=== PATIENT | male | born 1945 | race Caucasian/White ===

== ENCOUNTER 2017-03-05 11:19 | Outpatient (CLI) | payer MEDICARE ==
--- NOTE | 2017-03-05 13:09 | Ultrasound Report ---
RIGHT UPPER QUADRANT ULTRASOUND: 03/05/2017 CLINICAL INDICATION: Abnormal LFTs. TECHNIQUE: Real-time scanning was performed with [employer] sales representative static images obtained. FINDINGS: The liver measures 15.5 cm. Hepatic echogenicity is diffusely increased, compatible with f atty infiltration. No focal parenchymal lesion or intrahepatic biliary dilatation is present. The com mon bile duct measures 2 mm. The gallbladder is normal. The right kidney measures 11.9 cm, and demons trates no hydronephrosis. No free fluid is present. IMPRESSION: FATTY INFILTRATION OF THE LIVER. NO EVIDENCE OF CHOLELITHIASIS OR BILIARY OBSTRUCTION. JOB #: [id number] EXT JOB #:[id number]
== END 2017-03-05 11:20 | disposition home or self-care (01) ==
LOC: DI 11:19
PROVIDERS: ATTEND Internal Medicine
DX: K76.0 Fatty (change of) liver, not elsewhere classified (principal)
CPT/HCPCS: 76705

== ENCOUNTER 2017-06-22 06:48 | Day surgery (SDC) | payer MEDICARE ==
[2017-06-22] MEDS ORDERED: MIDAZOLAM 2 MG/2 ML VIAL IVP ONE (06:49)
[2017-06-22] MEDS ORDERED: fentaNYL 100 MCG/2 ML VIAL IVP ONE (06:49)
[2017-06-22] MEDS ORDERED: LACTATED RINGERS 1,000 ML IV ONE (07:46)
[2017-06-22 09:59] VITALS: BP 128/68
== END 2017-06-22 06:49 | disposition home or self-care (01) ==
LOC: SDS 06:48
PROVIDERS: ATTEND Surgery
PROC: 0DJD8ZZ Inspection of Lower Intestinal Tract, Via Natural or Artificial Opening Endoscopic (ICD-10-PCS; principal; 2017-06-22 08:00)
DX: Z12.11 Encounter for screening for malignant neoplasm of colon (principal); Z86.010 Personal history of colon polyps; K64.8 Other hemorrhoids; I10 Essential (primary) hypertension; E78.5 Hyperlipidemia, unspecified; K21.9 Gastro-esophageal reflux disease without esophagitis; Z79.82 Long term (current) use of aspirin
CPT/HCPCS: G0105; J7120

== ENCOUNTER 2019-03-28 08:48 | Outpatient (CLI) | payer MEDICARE ==
--- NOTE | 2019-03-29 09:36 | MRI Report ---
Reason: BILATERAL LEG NUMBNESS Procedure Date: 03/28/2019 Accession Number: [id number] / [id number] Procedure: MRI - Lumbar Spine W/O CPT Code: FULL RESULT: EXAM: MRI LUMBAR SPINE WITHOUT CONTRAST EXAM DATE: 03/28/2019 09:46 AM. CLINICAL HISTORY: Low back pain and bilateral leg numbness. COMPARISON: None. TECHNIQUE: Multiplanar, multisequence T1-weighted and fluid-sensitive sequences of the lumbar spine from T12 to S1 without contrast. Other: None. FINDINGS: Spinal Canal: The conus terminates at mid L1. The conus medullaris and cauda equina are unremarkable. There is moderate cord impingement at T10-T11. There is slight T2 hyperintense signal within the cord at the T10-T11 level. Alignment: Grade 1 retrolisthesis at L3-L4 by approximately 3 mm. Grade 1 anterolisthesis at T10-T11 by approximately 2 mm. Bone Marrow: Five [id number] lumbar vertebral bodies are assumed. Anterolateral osteophytes at multiple levels. No acute fracture or bone lesions. Schmorl's nodes at the T10, T11, T12, L5, and S1 vertebral body endplates. Disk Levels/Facets: L5-S1: Type II degenerative endplate changes. Moderate to severe disk space narrowing. Small disk bulge/osteophyte complex. Severe right and mild to moderate left facet arthropathy. Mild canal stenosis. Moderate to severe left and mild to moderate right foraminal stenoses. L4-L5: Moderate disk space narrowing. Small disk bulge. Moderate facet arthropathy. Mild canal stenosis. Moderate foraminal stenoses. L3-L4: Moderate to severe disk space narrowing. Small disk bulge/osteophyte complex. Moderate facet arthropathy. Mild canal stenosis. Mild to moderate foraminal stenoses. L2-L3: Moderate to severe disk space narrowing. Small disk bulge/osteophyte complex. Mild to moderate facet arthropathy. Mild canal stenosis. Mild to moderate foraminal stenoses. L1-L2: Small posterior left and right paracentral disk protrusion/osteophyte complexes. Mild canal stenosis. Moderate to severe subarticular zone stenoses. Mild to moderate foraminal stenoses. T12-L1: Mild to moderate facet arthropathy. Mild foraminal stenoses. T11-T12: Small disk bulge. Mild facet arthropathy. Minimal canal narrowing. Mild to moderate foraminal stenoses. T10-T11: Small disk bulge. Moderate facet arthropathy. Moderate to severe canal stenosis and cord impingement. Mild to moderate left and moderate right foraminal stenoses. Musculature: Normal. No edema or fatty atrophy. Other: The partially visualized retroperitoneum is unremarkable. IMPRESSION: 1. Multilevel degenerative disk changes, osteophytosis, and facet arthropathy. The most significant level is at T10-T11. Please see above for level by level details. 2. Grade 1 degenerative anterolisthesis at T10-T11. Small disk bulge and moderate facet arthropathy. Moderate to severe canal stenosis and cord impingement. There is T2 hyperintense signal within the cord at the T10-T11 level which may represent myelomalacia and/or edema. 3. Small disk bulge/osteophyte complex at L5-S1. Mild canal stenosis. Moderate to severe left and mild to moderate right foraminal stenoses. 4. Small disk bulge at L4-L5. Mild canal and moderate foraminal stenoses. 5. Small posterior left and right paracentral disk protrusion/osteophyte complexes at L1-L2. Mild canal stenosis. Moderate to severe subarticular zone stenoses. Mild to moderate foraminal stenoses. Comment: The following findings are so common in adults without low back pain that while we report their presence, they must be interpreted with caution and in the context of the clinical situation. (Reference Jarvik et al, Spine 2001) Prevalence of findings in patients without low back pain: Disk degeneration (any evidence): 92% Disk desiccation/T2 signal loss: 83% Disk height loss: 56% Disk bulge: 64% Disk protrusion: 32% Annular tear/high intensity zone: 38% RADIA The call report notification system was initiated by Dr. Chad Wu at 09:04 AM on 03/29/2019. The above call report findings were discussed with Dr. Danya Lee's medical service representative, Tejas, by Dr. Chad Wu at 09:31 AM on 03/29/2019.Tejas informed me that she will contact the covering physician's (Dr. Quan's) office regarding the findings of T10-11 cord impingement.
== END 2019-03-28 08:49 | disposition home or self-care (01) ==
LOC: DI 08:48
PROVIDERS: ATTEND Internal Medicine
DX: G95.20 Unspecified cord compression (principal); M43.14 Spondylolisthesis, thoracic region; M43.16 Spondylolisthesis, lumbar region; M25.78 Osteophyte, vertebrae; M51.44 Schmorl's nodes, thoracic region; M51.46 Schmorl's nodes, lumbar region; M53.3 Sacrococcygeal disorders, not elsewhere classified; M47.817 Spondylosis without myelopathy or radiculopathy, lumbosacral region; M51.37 Other intervertebral disc degeneration, lumbosacral region; M48.07 Spinal stenosis, lumbosacral region; M47.816 Spondylosis without myelopathy or radiculopathy, lumbar region; M51.36 Other intervertebral disc degeneration, lumbar region; M48.061 Spinal stenosis, lumbar region without neurogenic claudication; M47.815 Spondylosis without myelopathy or radiculopathy, thoracolumbar region; M51.26 Other intervertebral disc displacement, lumbar region; M48.05 Spinal stenosis, thoracolumbar region; M47.814 Spondylosis without myelopathy or radiculopathy, thoracic region; M51.34 Other intervertebral disc degeneration, thoracic region; M48.04 Spinal stenosis, thoracic region
CPT/HCPCS: 72148

== ENCOUNTER 2022-04-18 08:00 | Outpatient (CLI) | payer MEDICARE ==
[2022-04-18 16:19] LABS: BASOPHILS % (AUTO) 0.4 %; EOSINOPHILS # (AUTO) 0.1 10^3/uL (0.0-0.7); EOSINOPHILS % (AUTO) 1.5 %; HCT - HEMATOCRIT 40.7 % (42.0-52.0); HGB - HEMOGLOBIN 14.2 g/dL (14.0-18.0); LYMPHOCYTES # (AUTO) 1.9 10^3/uL (1.5-3.5); LYMPHOCYTES % (AUTO) 35.3 %; MEAN CORPUSCULAR HEMOGLOBIN 34.9 pg (27.0-31.0); MEAN CORPUSCULAR HGB CONC 34.9 g/dL (32.0-36.0); MEAN PLATELET VOLUME 10.7 fL (7.4-11.4); MONOCYTES # (AUTO) 0.7 10^3/uL (0.0-1.0); MONOCYTES % (AUTO) 12.4 %; NEUTROPHILS # (AUTO) 2.7 10^3/uL (1.5-6.6); NEUTROPHILS % (AUTO) 50.2 %; PLT - PLATELET COUNT 149 10^3/uL (130-450); RED BLOOD COUNT 4.07 10^6/uL (4.70-6.10); RED CELL DISTRIBUTION WIDTH 11.8 % (12.0-15.0); WHITE BLOOD COUNT 5.4 x10^3/uL (4.8-10.8)
[2022-04-18 16:43] LABS: ALBUMIN 4.7 g/dL (3.2-5.5); ALBUMIN/GLOBULIN RATIO 1.7 (1.0-2.2); ALKALINE PHOSPHATASE 53 IU/L (42-121); ALT ALANINE AMINOTRANSFERASE 50 IU/L (10-60); AST ASPARTATE AMINOTRANSFERASE 48 IU/L (10-42); BUN - BLOOD UREA NITROGEN 11 mg/dL (6-20); CALCIUM 9.6 mg/dL (8.5-10.3); CARBON DIOXIDE - CO2 26 mmol/L (21-32); CHLORIDE 100 mmol/L (101-111); CHOL/HDL RATIO 3.1 (<5.0); CHOLESTEROL 230 mg/dL; CREATININE 0.7 mg/dL (0.6-1.2); GFR - MDRD 109 (>89); GLUCOSE 118 mg/dL (70-100); HDL CHOLESTEROL 74 mg/dL; LDL CHOLESTEROL,CALCULATED 142 mg/dL; LDL/HDL RATIO 1.9 (<3.6); POTASSIUM 4.1 mmol/L (3.5-5.0); SODIUM 135 mmol/L (135-145); TOTAL PROTEIN 7.5 g/dL (6.7-8.2); TRIGLYCERIDES 72 mg/dL; VLDL CHOLESTEROL 14 mg/dL
[2022-04-18 16:49] LABS: THYROID STIMULATING HORMONE 4.27 uIU/mL (0.34-5.60)
[2022-04-18 20:26] LABS: ESTIMATED AVERAGE GLUCOSE 111 mg/dL (70-100); HEMOGLOBIN A1c% 5.5 % (4.27-6.07)
== END 2022-04-18 23:59 | disposition home or self-care (01) ==
LOC: LAB.R 08:00
PROVIDERS: ATTEND Internal Medicine
DX: Z00.00 Encounter for general adult medical examination without abnormal findings (principal); C44.91 Basal cell carcinoma of skin, unspecified; M21.929 Unspecified acquired deformity of unspecified upper arm; R74.8 Abnormal levels of other serum enzymes; K21.9 Gastro-esophageal reflux disease without esophagitis; E78.5 Hyperlipidemia, unspecified; I10 Essential (primary) hypertension; R73.01 Impaired fasting glucose; Z12.5 Encounter for screening for malignant neoplasm of prostate; J30.2 Other seasonal allergic rhinitis; Z79.899 Other long term (current) drug therapy
CPT/HCPCS: 80053; 80061; 82607; 83036; 83721; 84443; 85025

== ENCOUNTER 2022-06-26 17:24 | Outpatient (CLI) | payer MEDICARE ==
[2022-06-26 16:00] LABS: CALCIUM 9.9 mg/dL (8.5-10.3); CREATININE 0.8 mg/dL (0.6-1.2); POTASSIUM 3.4 mmol/L (3.5-5.0)
== END 2022-06-26 23:59 | disposition home or self-care (01) ==
LOC: LAB.R 17:24
PROVIDERS: ATTEND Internal Medicine
DX: I10 Essential (primary) hypertension (principal)
CPT/HCPCS: 80048